=== PATIENT | male | born 2000 | race American Indian/Alaskan Native ===

== ENCOUNTER 2020-05-21 17:41 | Emergency (ER) | payer SELFPAY ==
[2020-05-21] MEDS ORDERED: LORazepam 2 MG/ML VIAL IM STA (17:45)
[2020-05-21] MEDS ORDERED: HALOPERIDOL LACTATE 5 MG/1 ML INJ IM ONE (17:45)
[2020-05-21] MEDS ORDERED: SODIUM CHLORIDE 0.9% 1000 ML 1,000 ML IV ONE ×2 (17:45→19:45)
--- NOTE | 2020-05-21 17:51 | Emergency Department Report ---
ED Altered Mental Status HPI - General Stated Complaint: COMBATIVE Time Seen by Provider: 05/21/20 17:44 - History of Present Illness Initial Comments: Chief complaint: Altered mental status This is a young gentleman unknown age who presents with altered mental status. Bystander called 911 for abnormal behavior. Patient appeared agitated running in and out of traffic onto her [place]. Police officers chased him down. He required multiple personnel holding him in place. In spite 5 mg Versed IM he continued to be combative. He gives 1 word answers. Unintelligible conversation. He makes eye contact. He does not follow commands. No identi fication on person. Patient also given naloxone per EMS. MD Complaint: altered mental status -: unknown Severity: severe Consistency of Symptoms: constant - Related Data Allergies Allergy/AdvReac Type Severity Reaction Status Date / Time No Known Allergies Allergy Unverified 05/21/20 19:14 ED Review of Systems ROS: Stated complaint: COMBATIVE Other details as noted in HPI Comment: Unobtainable due to pts medical conditions (Altered mental status) ED Past Medical Hx - Past Medical History Additional medical history: Unable to be obtained - Surgical History Additional Surgical History: Unable to be obtained ED Physical Exam - General Limitations: Altered Mental Status General appearance: alert, other (Nonverbal, makes eye contact, appears restless, requiring multiple personnel holding extremities) - Head Head exam: Present: atraumatic, normocephalic - Eye Eye exam: Present: normal appearance. Absent: scleral icterus, conjunctival injection - ENT ENT exam: Present: mucous membranes dry - Neck Neck exam: Present: normal inspection, full ROM - Respiratory Respiratory exam: Present: normal lung sounds bilaterally. Absent: respiratory distress, wheezes, rales, rhonchi, chest wall tenderness, accessory muscle use, decreased breath sounds, prolonged expiratory - Cardiovascular Cardiovascular Exam: Present: regular rate, normal rhythm, normal heart sounds. Absent: bradycardia, tachycardia, systolic murmur, diastolic murmur - GI/Abdominal GI/Abdominal exam: Present: soft. Absent: distended, tenderness, guarding, rebound - Extremities Exam Extremities exam: Present: normal inspection - Neurological Exam Neurological exam: Present: altered - Psychiatric Psychiatric exam: Present: agitated - Skin Skin exam: Present: warm, dry, intact, normal color ED Course Vital Signs 05/21/20 05/21/20 05/21/20 18:46 19:16 19:46 Pulse Rate 110 H 110 H 59 L Respiratory 38 H 23 14 Rate Blood Pressure 154/101 157/94 Blood Pressure [Right] O2 Sat by Pulse 99 99 98 Oximetry 05/21/20 05/21/20 05/21/20 20:00 20:52 21:00 Pulse Rate 68 75 70 Respiratory 16 16 16 Rate Blood Pressure 123/89 126/78 126/75 Blood Pressure [Right] O2 Sat by Pulse 97 Oximetry 05/21/20 05/21/20 05/22/20 22:00 23:00 00:00 Pulse Rate 51 L 53 L 64 Respiratory 15 14 11 L Rate Blood Pressure 127/82 135/80 113/80 Blood Pressure [Right] O2 Sat by Pulse Oximetry 05/22/20 05/22/20 05/22/20 01:00 02:01 03:01 Pulse Rate 56 L Respiratory 14 Rate Blood Pressure 123/90 130/57 123/84 Blood Pressure [Right] O2 Sat by Pulse Oximetry 05/22/20 05/22/20 05/22/20 04:04 05:01 06:02 Pulse Rate Respiratory Rate Blood Pressure 126/37 127/91 124/44 Blood Pressure [Right] O2 Sat by Pulse Oximetry 05/22/20 05/22/20 16:36 22:03 Pulse Rate 50 L 62 Respiratory 16 18 Rate Blood Pressure Blood Pressure 118/62 121/76 [Right] O2 Sat by Pulse 100 98 Oximetry - Reevaluation(s) Reevaluation #1: 05/21/20 17:52 Initially patient would not give any history. Once restraint to the bed after receiving Haldol and Ativan, he states that "I have too much medicine in my body. I have a diagnosis of psychosis. I take Haldol." When asked if he used street drugs such as cocaine or methamphetamine, patient would not give affirmative or negative answer. He is hyperverbal at this time. Reevaluation #2: 05/21/20 22:04 Restraints removed. Patient is sedated. Maintaining airway. Normal vital signs. Tachycardia has resolved. Repeat heart rate 65 bpm. - Lab Data Result diagrams: 05/21/20 18:06 05/21/20 18:06 Lab Results 05/21/20 05/21/20 05/21/20 Range/Units 18:06 18:06 18:06 WBC 4.0 L (4.5-11.0) K/mm3 RBC 4.69 (3.65-5.03) M/mm3 Hgb 13.9 (11.8-15.2) gm/dl Hct 41.4 (35.5-45.6) % MCV 88 (84-94) fl MCH 30 (28-32) pg MCHC 34 (32-34) % RDW 13.6 (13.2-15.2) % Plt Count 258 (140-440) K/mm3 Lymph % (Auto) 15.0 (13.4-35.0) % Angelina % (Auto) 11.2 H (0.0-7.3) % Eos % (Auto) 0.4 (0.0-4.3) % Baso % (Auto) 0.4 (0.0-1.8) % Lymph # (Auto) 0.6 L (1.2-5.4) K/mm3 Angelina # (Auto) 0.4 (0.0-0.8) K/mm3 Eos # (Auto) 0.0 (0.0-0.4) K/mm3 Baso # (Auto) 0.0 (0.0-0.1) K/mm3 Seg Neutrophils % 73.0 H (40.0-70.0) % Seg Neutrophils # 2.9 (1.8-7.7) K/mm3 Sodium 137 (137-145) mmol/L Potassium 3.6 (3.6-5.0) mmol/L Chloride 97.9 L (98-107) mmol/L Carbon Dioxide 22 (22-30) mmol/L Anion Gap 21 mmol/L BUN 22 H (9-20) mg/dL Creatinine 1.3 (0.8-1.3) mg/dL Estimated GFR > 60 ml/min BUN/Creatinine Ratio 17 % Glucose 95 (75-100) mg/dL Calcium 9.6 (8.4-10.2) mg/dL Total Bilirubin 0.60 (0.1-1.2) mg/dL AST 184 H (5-40) units/L ALT 66 H (7-56) units/L Alkaline Phosphatase 78 (35-129) units/L Total Protein 7.8 (6.3-8.2) g/dL Albumin 4.7 (3.9-5) g/dL Albumin/Globulin Ratio 1.5 % Urine Color (Yellow) Urine Turbidity (Clear) Urine pH (5.0-7.0) Ur Specific Musella (1.003-1.030) Urine Protein (Negative) mg/dL Urine Glucose (UA) (Negative) mg/dL Urine Ketones (Negative) mg/dL Urine Blood (Negative) Urine Nitrite (Negative) Urine Bilirubin (Negative) Urine Urobilinogen (<2.0) mg/dL Ur Leukocyte Esterase (Negative) Urine WBC (Auto) (0.0-6.0) /HPF Urine RBC (Auto) (0.0-6.0) /HPF Urine Bacteria (Auto) (Negative) /HPF Salicylates < 0.3 L (2.8-20.0) mg/dL Urine Opiates Screen Urine Methadone Screen Acetaminophen (10.0-30.0) ug/mL Ur Barbiturates Screen Ur Phencyclidine Scrn Ur Amphetamines Screen U Benzodiazepines Scrn Urine Cocaine Screen U Marijuana (THC) Screen Drugs of Abuse Note Plasma/Serum Alcohol (0-0.07) % 05/21/20 05/21/20 05/22/20 Range/Units 18:06 18:06 Unknown WBC (4.5-11.0) K/mm3 RBC (3.65-5.03) M/mm3 Hgb (11.8-15.2) gm/dl Hct (35.5-45.6) % MCV (84-94) fl MCH (28-32) pg MCHC (32-34) % RDW (13.2-15.2) % Plt Count (140-440) K/mm3 Lymph % (Auto) (13.4-35.0) % Angelina % (Auto) (0.0-7.3) % Eos % (Auto) (0.0-4.3) % Baso % (Auto) (0.0-1.8) % Lymph # (Auto) (1.2-5.4) K/mm3 Angelina # (Auto) (0.0-0.8) K/mm3 Eos # (Auto) (0.0-0.4) K/mm3 Baso # (Auto) (0.0-0.1) K/mm3 Seg Neutrophils % (40.0-70.0) % Seg Neutrophils # (1.8-7.7) K/mm3 Sodium (137-145) mmol/L Potassium (3.6-5.0) mmol/L Chloride (98-107) mmol/L Carbon Dioxide (22-30) mmol/L Anion Gap mmol/L BUN (9-20) mg/dL Creatinine (0.8-1.3) mg/dL Estimated GFR ml/min BUN/Creatinine Ratio % Glucose (75-100) mg/dL Calcium (8.4-10.2) mg/dL Total Bilirubin (0.1-1.2) mg/dL AST (5-40) units/L ALT (7-56) units/L Alkaline Phosphatase (35-129) units/L Total Protein (6.3-8.2) g/dL Albumin (3.9-5) g/dL Albumin/Globulin Ratio % Urine Color Yellow (Yellow) Urine Turbidity Clear (Clear) Urine pH 5.0 (5.0-7.0) Ur Specific Musella 1.031 H (1.003-1.030) Urine Protein 30 mg/dl (Negative) mg/dL Urine Glucose (UA) Neg (Negative) mg/dL Urine Ketones 20 (Negative) mg/dL Urine Blood Neg (Negative) Urine Nitrite Neg (Negative) Urine Bilirubin Neg (Negative) Urine Urobilinogen < 2.0 (<2.0) mg/dL Ur Leukocyte Esterase Neg (Negative) Urine WBC (Auto) < 1.0 (0.0-6.0) /HPF Urine RBC (Auto) 1.0 (0.0-6.0) /HPF Urine Bacteria (Auto) 1+ (Negative) /HPF Salicylates (2.8-20.0) mg/dL Urine Opiates Screen Urine Methadone Screen Acetaminophen 5.0 L (10.0-30.0) ug/mL Ur Barbiturates Screen Ur Phencyclidine Scrn Ur Amphetamines Screen U Benzodiazepines Scrn Urine Cocaine Screen U Marijuana (THC) Screen Drugs of Abuse Note Plasma/Serum Alcohol < 0.01 (0-0.07) % 05/22/20 Range/Units Unknown WBC (4.5-11.0) K/mm3 RBC (3.65-5.03) M/mm3 Hgb (11.8-15.2) gm/dl Hct (35.5-45.6) % MCV (84-94) fl MCH (28-32) pg MCHC (32-34) % RDW (13.2-15.2) % Plt Count (140-440) K/mm3 Lymph % (Auto) (13.4-35.0) % Angelina % (Auto) (0.0-7.3) % Eos % (Auto) (0.0-4.3) % Baso % (Auto) (0.0-1.8) % Lymph # (Auto) (1.2-5.4) K/mm3 Angelina # (Auto) (0.0-0.8) K/mm3 Eos # (Auto) (0.0-0.4) K/mm3 Baso # (Auto) (0.0-0.1) K/mm3 Seg Neutrophils % (40.0-70.0) % Seg Neutrophils # (1.8-7.7) K/mm3 Sodium (137-145) mmol/L Potassium (3.6-5.0) mmol/L Chloride (98-107) mmol/L Carbon Dioxide (22-30) mmol/L Anion Gap mmol/L BUN (9-20) mg/dL Creatinine (0.8-1.3) mg/dL Estimated GFR ml/min BUN/Creatinine Ratio % Glucose (75-100) mg/dL Calcium (8.4-10.2) mg/dL Total Bilirubin (0.1-1.2) mg/dL AST (5-40) units/L ALT (7-56) units/L Alkaline Phosphatase (35-129) units/L Total Protein (6.3-8.2) g/dL Albumin (3.9-5) g/dL Albumin/Globulin Ratio % Urine Color (Yellow) Urine Turbidity (Clear) Urine pH (5.0-7.0) Ur Specific [place] (1.003-1.030) Urine Protein (Negative) mg/dL Urine Glucose (UA) (Negative) mg/dL Urine Ketones (Negative) mg/dL Urine Blood (Negative) Urine Nitrite (Negative) Urine Bilirubin (Negative) Urine Urobilinogen (<2.0) mg/dL Ur Leukocyte Esterase (Negative) Urine WBC (Auto) (0.0-6.0) /HPF Urine RBC (Auto) (0.0-6.0) /HPF Urine Bacteria (Auto) (Negative) /HPF Salicylates (2.8-20.0) mg/dL Urine Opiates Screen Negative Urine Methadone Screen Negative Acetaminophen (10.0-30.0) ug/mL Ur Barbiturates Screen Negative Ur Phencyclidine Scrn Negative Ur Amphetamines Screen Positive U Benzodiazepines Scrn Positive Urine Cocaine Screen Negative U Marijuana (THC) Screen Positive Drugs of Abuse Note Disclamer Plasma/Serum Alcohol (0-0.07) % - Medical Decision Making Drug-induced psychosis, methamphetamine intoxication: Patient was quite agitated and combative. He required chemical and physical restraint. He informed nursing staff that he used methamphetamine today. He kept repeating that there is "too much Haldol in my system". I suspect the patient will awaken from chemical restraint. Physical soft tissue restraints have been removed. Patient is medically clear for psychiatric care once awake and alert. Patient w ill need evaluation by mental health collections professional. Patient was appropriately discharged after mental health assessment. Vital Signs - 24 hr 05/21/20 05/21/20 05/21/20 18:46 19:16 19:46 Pulse Rate 110 H 110 H 59 L Respiratory 38 H 23 14 Rate Blood Pressure 154/101 157/94 O2 Sat by Pulse 99 99 98 Oximetry 05/21/20 20:00 Pulse Rate 68 Respiratory 16 Rate Blood Pressure 123/89 O2 Sat by Pulse 97 Oximetry Critical Care Time: Yes Critical care time in (mins) excluding proc time.: 40 Critical care attestation.: If time is entered above; I have spent that time in minutes in the direct care of this critically ill patient, excluding procedure time. 40 minutes of critical care time excluding procedures were used in the care of the patient. I came immediately to the bedside upon patient's arrival. I was called to the room by charge nurse. Patient required for EMS personnel to restrain. Patient was altered. I was concerned for danger to patient and medical staff. I supervised administration of chemical restraint. I also supervised administration soft tissue restraints. Additional security personnel were called to the room. I obtained history from EMS at the bedside. I discussed treatment plan with the nursing team members. I reviewed electronic record. Patient required multiple assessments in order to ensure protection of of airway and resolution of tachycardia. patient required multiple interventions and reassessments. ED Disposition Clinical Impression: Methamphetamine intoxication, History of psychosis Disposition: DC-01 TO HOME OR SELFCARE Is pt being admited?: No Does the pt Need Aspirin: No Condition: Stable
[2020-05-21 18:16] LABS: Basophils % (Auto) 0.4 % (0.0-1.8); Eosinophils % (Auto) 0.4 % (0.0-4.3); Hematocrit 41.4 % (35.5-45.6); Hemoglobin 13.9 gm/dl (11.8-15.2); Lymphocytes # (Auto) 0.6 K/mm3 (1.2-5.4); Mean Corpuscular HGB Conc 34 % (32-34); Mean Corpuscular Volume 88 fl (84-94); Monocytes # (Auto) 0.4 K/mm3 (0.0-0.8); Monocytes % (Auto) 11.2 % (0.0-7.3); Platelet Count 258 K/mm3 (140-440); Red Blood Count 4.69 M/mm3 (3.65-5.03); Red Cell Distribution Width 13.6 % (13.2-15.2)
[2020-05-21 18:37] LABS: Alanine Aminotransferase 66 units/L (7-56); Albumin 4.7 g/dL (3.9-5); BUN/Creatinine Ratio 17; Blood Urea Nitrogen 22 mg/dL (9-20); Calcium 9.6 mg/dL (8.4-10.2); Hemolysis Index 7
[2020-05-21] MEDS ORDERED: ALUM-MAG HYDROXIDE-SIMETHICONE 200-200-20MG/5ML ORAL LIQD 30 ML PO PRN (23:02)
[2020-05-21] MEDS ORDERED: MAGNESIUM HYDROXIDE (MOM) ORAL LIQD UDC PO PRN (23:02)
[2020-05-21] MEDS ORDERED: ACETAMINOPHEN 325 MG TAB PO PRN (23:02)
--- NOTE | 2020-05-22 10:08 | Consultation ---
History of Present Illness - Reason for Consult Consult date: 05/22/20 Reason for consult: MHE Requesting physician: MONIE CHRISTOPHER - History of Present Psychiatric Illness Per ED provider this is a young gentleman unknown age who presents with altered mental status. Bystander called 911 for abnormal behavior. Patient appeared agitated running in and out of traffic onto her [place]. Police officers chased him down. He required multiple personnel holding him in place. In spite 5 mg Versed IM he continued to be combative. He gives 1 word answers. Unintelligible conversation. He makes eye contact. He does not follow commands. No identification on person. PSYCH HPI Patient seen in the room, awake but asking me for food, state his name is Higinio, he reports took some drugs, then told me i should know what drugs he took, and then went back to sleep refusing to talk to me unless i get food. PAST PSYCHIATRIC HISTORY Diagnoses: n/a Suicide attempts or Self-harm behavior: n/a Prior psychiatric hospitalizations: n/a Substance Abuse history: n/a Previous psychiatric medications tried: n/a Outpatient treatment: n/a PAST MEDICAL HISTORY: n/a Family Psychiatric History: None reported or documented SOCIAL HISTORY Marital Status: n/a Living Arrangements: n/a Employment Status: n/a Access to guns/weapons: n/a Education: n/a History of Abuse: n/a Legal History: n/a REVIEW OF SYSTEMS ROS cannot be reliably obtained from the patient due to his confusion. MENTAL STATUS EXAM General Appearance and Behavior: Age appropriate, good hygiene, wearing appropriate clothes, good eye contact, uncooperative with questioning. Cooperation: Withdrawn Psychomotor Behavior: unremarkable and within normal limits Mood: Neutral Affect and affective range: Flat Thought Process:N/A Thought Content: N/A Speech: Normal volume, Regular rate and rhythm Intellectual Functioning: N/A Suicidal Ideation: N/A l Homicidal Ideation: N/A Impulse Control: Impaired Insight and Judgment: Impaired Memory: N/A Attention: Normal, Orientation: Alert Assessment and Plan - Psychiatric problem (1) Unspecified mood [affective] disorder Current Visit: Yes Status: Acute Treatment Plan Patient needs a UDS to determine if behahior is drug influenced. MEDICATIONS: Risks, benefits and alternatives of medications discussed with the patient, questions answered and consent obtained from patient. PSYCHOTHERAPY: Supportive psychotherapy provided MEDICAL: Per primary team DELIRIUM PRECAUTIONS: Please re-orient patient frequently, keep lights on during the day, and minimize benzodiazepines and opiates as these medications could worsen patient's confusion. COLLABORATIVE TEACHER: per medical DISPOSITION: Do not Recommend acute inpatient psychiatric hospitalization at this time, not enough information to determine benefit. Case discussed with Dr. Spann who agrees with current disposition LEGAL STATUS: per medical FOLLOW-UP: Will follow Thank you for the consult. Please contact with any questions and/or concerns. Medications and Allergies Allergies Allergy/AdvReac Type Severity Reaction Status Date / Time No Known Allergies Allergy Unverified 05/21/20 19:14 Active Meds: Active Medications Acetaminophen (Acetaminophen 325 Mg Tab) 650 mg PO Q4HR PRN PRN Reason: Pain MILD(1-3)/Fever >100.5/MCMILLAN Al Hydrox/Mg Hydrox/Simethicone (Alum-Mag Hydroxide-Simethicone [id number]/5ml Oral Liqd 30 Ml) 30 ml PO Q4HR PRN PRN Reason: Indigestion Magnesium Hydroxide (Magnesium Hydroxide (Mom) Oral Liqd Udc) 30 ml PO Q12HR PRN PRN Reason: Constipation Mental Status Exam - Vital signs Last Vital Signs Temp Pulse 56 L 05/22/20 01:00 Resp 14 05/22/20 01:00 BP 124/44 05/22/20 06:02 Pulse Ox 97 05/21/20 20:00 Results Result Diagrams: 05/21/20 18:06 05/21/20 18:06 Abnormal lab results 05/21/20 05/21/20 05/21/20 Range/Units 18:06 18:06 18:06 WBC 4.0 L (4.5-11.0) K/mm3 [place] % (Auto) 11.2 H (0.0-7.3) % Lymph # (Auto) 0.6 L (1.2-5.4) K/mm3 Seg Neutrophils % 73.0 H (40.0-70.0) % Chloride 97.9 L (98-107) mmol/L BUN 22 H (9-20) mg/dL AST 184 H (5-40) units/L ALT 66 H (7-56) units/L Salicylates < 0.3 L (2.8-20.0) mg/dL Acetaminophen (10.0-30.0) ug/mL 05/21/20 Range/Units 18:06 WBC (4.5-11.0) K/mm3 [place] % (Auto) (0.0-7.3) % Lymph # (Auto) (1.2-5.4) K/mm3 Seg Neutrophils % (40.0-70.0) % Chloride (98-107) mmol/L BUN (9-20) mg/dL AST (5-40) units/L ALT (7-56) units/L Salicylates (2.8-20.0) mg/dL Acetaminophen 5.0 L (10.0-30.0) ug/mL All other labs normal. Assessment and Plan - Psychiatric problem (1) Unspecified mood [affective] disorder Current Visit: Yes Status: Acute
[2020-05-22 16:34] LABS: Cocaine Screen,Urine Negative; Methadone Screen,Urine Negative; Opiate Screen,Urine Negative
[2020-05-22 16:45] LABS: Bacteria,Urine 1+ /HPF (Negative); Bilirubin,Urine NEG (Negative); Blood,Urine NEG (Negative); Color,Urine Yellow (Yellow); Urobilinogen,Urine < 2.0 mg/dL (<2.0); WBC,Urine < 1.0 /HPF (0.0-6.0)
[2020-05-22 16:47] LABS: Amphetamine Screen,Urine Positive; Benzodiazepines Screen,Urine Positive; Cannabinoid Screen,Urine Positive
[2020-05-22 22:03] VITALS: BP 121/76
== END 2020-05-22 22:10 | disposition home or self-care (01) ==
LOC: EDBD → ED 17:41
DX: F10.129 Alcohol abuse with intoxication, unspecified (principal); F29 Unspecified psychosis not due to a substance or known physiological condition
CPT/HCPCS: 36415; 80053; 80307; 81001; 85025; 96360; 96361; 96372; 99284; J1630; J2060; J7030; 80320; G0480